=== PATIENT | female | born 1965 | race African-American/Black ===

== ENCOUNTER 2024-10-28 23:36 | Emergency (ER) | payer OTHER, MEDICAID ==
[~2024-10-28] VITALS: Ht 162.6 cm; Wt 65.8 kg
[2024-10-29] MEDS ORDERED: KETOROLAC TROMETHAMINE INJ 30 MG/ML VIAL ONE (00:08)
[2024-10-29] MEDS: KETOROLAC TROMETHAMINE INJ 30 MG/ML VIAL IM ONE (00:31)
[2024-10-29] MEDS ORDERED: NAPR-1009 PO (02:10)
[2024-10-29] MEDS ORDERED: IBUPROFEN 600 MG TABLET ONE (03:47)
[2024-10-29] MEDS: IBUPROFEN 600 MG TABLET PO ONE (03:54)
[2024-10-29 04:04] VITALS: BP 145/89; TEMP 98; O2SAT 98
== END 2024-10-29 04:05 | disposition home or self-care (01) ==
LOC: ER 23:38
DX: S83.92XA Sprain of unspecified site of left knee, initial encounter (principal); S00.83XA Contusion of other part of head, initial encounter; M25.512 Pain in left shoulder; M25.562 Pain in left knee; V43.52XA Car driver injured in collision with other type car in traffic accident, initial encounter; Y93.89 Activity, other specified; Y92.488 Other paved roadways as the place of occurrence of the external cause; Y99.8 Other external cause status
CPT/HCPCS: 99284; 70450; 73564; 73030; J1885